=== PATIENT | female | born 1995 | race Caucasian/White ===

== ENCOUNTER 2016-08-13 19:59 | Emergency (ER) | payer SELFPAY ==
--- NOTE | 2016-08-13 21:04 | ED CLINICAL REPORT ---
Clinical Report - Physicians/Mid Levels [facility] [address] [place] [address] 08/13/2016 20:03 Patient: ILYA GONZALEZ Time Seen: 20:45 Kam 11 2016. Arrived- By private vehicle. Historian- patient. HISTORY OF PRESENT ILLNESS Chief Complaint: Injury to the right hand. The injury happened just prior to arrival. The patient sustained a laceration. Patient is experiencing mild pain. Patient denies injury to the head or neck. ( Possible fb from a wood stick/ splinter, removed part of it, unsure if part of it remains). REVIEW OF SYSTEMS No tingling, numbness or skin laceration. All systems otherwise negative, except as recorded above. PAST HISTORY The patient's dominant hand is the right. She has not had a prior injury to the same area. Tetanus immunization status is up-to-date. SOCIAL HISTORY Never smoker. Alcohol use. ADDITIONAL NOTES The nursing notes have been reviewed. PHYSICAL EXAM Vital Signs: 08/13/2016 20:12 BP: 121/83. HR: 82. RR: 15. O2 saturation: 98%. Temp: 98.6 F. Pain level now: 7/10. Appearance: Alert. No acute distress. Head: Head atraumatic. CVS: Normal heart rate and rhythm. Heart sounds normal. Respiratory: No respiratory distress. Breath sounds normal. Extremities: Right palm: (at proximal aspect of mcp 2nd digit flexor surface/ palm). (pain with flexion, able to flex completley. no palpable fb, no bleeding, mild swelling, small puncture hole noted on ramirez surface of ramirez mcp). No wrist injury. Neuro, Vascular and Tendons: Vascular status intact. Capillary refill not prolonged. Motor intact. Neuro: Oriented X 3. PROGRESS AND PROCEDURES Course of Care: after let applied wound irrigate. no palpable foreign object. Patient with full range of motion, no osseous tenderness, suspicion for an osseous fracture with a wood splinter is low, an x-ray would be amenable benefit, aS Wood is not radialopaque. Patient is stable, splint applied for comfort, irrigated, will start on Keflex. History of MRSA. 08/13/2016 21:21 BP: 116/85. HR: 63. RR: 14. O2 saturation: 100%. Pain level now: 4/10. Patient is stable. Physical exam findings are improved. Symptoms better. Patient/family counseled. Disposition: Discharged. Condition: good. CLINICAL IMPRESSION Retained soft tissue foreign body to the right hand. Puncture wound present (Possible wood retained). INSTRUCTIONS Elevate affected areas above chest level. Protect wound and keep wound area clean. Apply bacitracin twice daily. (follow up with your dr or ortho or [facility] Address: [address] [place] [address] ). Prescription Medications: Cephalexin 500 mg: take 1 capsule orally every 8 hours for 10 days. No refill. Ibuprofen 800 mg tablets: take 1 tablet orally every 8 hours for 5 days, as needed for pain. Dispense fifteen (15). No refill. OTC Medications: Tylenol ER 650 mg (available over the counter): take 1 orally every 6 hours for 5 days, as needed for pain. Dispense fifteen (15). No refill. Substitution is permissible. [facility] with: [facility], , [address] [place] [address] Follow up. Call for the next available appointment. (Electronically signed by Tamy Murdock P.A.-C 08/13/2016 21:27)
--- NOTE | 2016-08-13 21:04 | ED CLINICAL REPORT ---
Clinical Report - Physicians/Mid Levels [facility] [address] [place] [address] 08/13/2016 20:03 Patient: ILYA GONZALEZ Time Seen: 20:45 Kam 11 2016. Arrived- By private vehicle. Historian- patient. HISTORY OF PRESENT ILLNESS Chief Complaint: Injury to the right hand. The injury happened just prior to arrival. The patient sustained a laceration. Patient is experiencing mild pain. Patient denies injury to the head or neck. ( Possible fb from a wood stick/ splinter, removed part of it, unsure if part of it remains). REVIEW OF SYSTEMS No tingling, numbness or skin laceration. All systems otherwise negative, except as recorded above. PAST HISTORY The patient's dominant hand is the right. She has not had a prior injury to the same area. Tetanus immunization status is up-to-date. SOCIAL HISTORY Never smoker. Alcohol use. ADDITIONAL NOTES The nursing notes have been reviewed. PHYSICAL EXAM Vital Signs: 08/13/2016 20:12 BP: 121/83. HR: 82. RR: 15. O2 saturation: 98%. Temp: 98.6 F. Pain level now: 7/10. Appearance: Alert. No acute distress. Head: Head atraumatic. CVS: Normal heart rate and rhythm. Heart sounds normal. Respiratory: No respiratory distress. Breath sounds normal. Extremities: Right palm: (at proximal aspect of mcp 2nd digit flexor surface/ palm). (pain with flexion, able to flex completley. no palpable fb, no bleeding, mild swelling, small puncture hole noted on ramirez surface of ramirez mcp). No wrist injury. Neuro, Vascular and Tendons: Vascular status intact. Capillary refill not prolonged. Motor intact. Neuro: Oriented X 3. PROGRESS AND PROCEDURES Course of Care: after let applied wound irrigate. no palpable foreign object. Patient with full range of motion, no osseous tenderness, suspicion for an osseous fracture with a wood splinter is low, an x-ray would be amenable benefit, aS Wood is not radialopaque. Patient is stable, splint applied for comfort, irrigated, will start on Keflex. History of MRSA. 08/13/2016 21:21 BP: 116/85. HR: 63. RR: 14. O2 saturation: 100%. Pain level now: 4/10. Patient is stable. Physical exam findings are improved. Symptoms better. Patient/family counseled. Disposition: Discharged. Condition: good. CLINICAL IMPRESSION Retained soft tissue foreign body to the right hand. Puncture wound present (Possible wood retained). INSTRUCTIONS Elevate affected areas above chest level. Protect wound and keep wound area clean. Apply bacitracin twice daily. (follow up with your dr or ortho or [facility] Address: [address] [place] [address] ). Prescription Medications: Cephalexin 500 mg: take 1 capsule orally every 8 hours for 10 days. No refill. Ibuprofen 800 mg tablets: take 1 tablet orally every 8 hours for 5 days, as needed for pain. Dispense fifteen (15). No refill. OTC Medications: Tylenol ER 650 mg (available over the counter): take 1 orally every 6 hours for 5 days, as needed for pain. Dispense fifteen (15). No refill. Substitution is permissible. Follow-up with: [facility], , [address] [place] [address] Follow up. Call for the next available appointment. (Electronically signed by Tamy Murdock P.A.-C 08/13/2016 21:27)
--- NOTE | 2016-08-13 21:04 | ED ORDER SUMMARY ---
..... Patient: ILYA GONZALEZ OrderSheet [facility] VisitID: [id number] [address] [place] [address] 21y, F Registration Date/Time: 08/13/2016 ORDER SHEET Weight: 61.2 kg Allergies: Latex GENERAL ORDERS: MEDICATION ORDERS: LET Topical 1 application (NOW) (20:08/13/2016 EKemeka P.A.-C) (20:54 RMdarnell R.N.) Keflex PO 500 mg (NOW) (20:28 08/13/2016 Theron P.A.-C) (Ack 20:54 RMlayoden R.N.) (21:11 Josue R.N.) IV FLUIDS: ORDER SHEET NOTES: [Electronically signed by Tamy MurdockATiffanie-Aristides (21:27 08/13/2016)] [Electronically signed by Arelis Feliz R.N. (03:30 08/14/2016)] [Electronically locked/signed by Arelis Feliz R.N. (03:30 08/14/2016)]
--- NOTE | 2016-08-13 21:04 | ED NURSING NOTES ---
Clinical Report - Nurses [facility] [address] [place] [address] 08/13/2016 20:03 Patient: ILYA GONZALEZ TRIAGE Triage time 20:12. Acuity: LEVEL 4. Chief Complaint: INJURY TO RIGHT HAND. 20:19 08/13/16. Alert. No acute distress. SEPSIS SCREEN: Sepsis Screen. Negative (no infection suspected/documented). SRIRAM COMA SCORE: Sriram Coma Scale: 15- eyes open spontaneously (4); best verbal response- oriented x 4 (5); best motor response- obeys commands (6). --20:19 Arelis Feliz R.N. 20:12 08/13/16. BP: 121/83. HR: 82. RR: 15. O2 saturation: 98%. Temp: 98.6 F. Pain level now: 09/11. --20:19 Arelis Feliz R.N. Weight: 61.2 kg. Height/Length: 63 inches. BMI: 23.9. --21:27 Arelis Feliz R.N. Medications None. --20:16 Arelis Feliz R.N. Allergies Latex. --21:59 Arelis Feliz R.N. The following entry was struck by Arelis Feliz R.N., 21:59 (08/13/16) Reason - wrong value. <<STRICKEN ENTRY-- None. --20:16 Arelis Feliz R.N. --END STRIKE>>. History Arrived by private vehicle. Historian: patient. Accompanied by friend. Primary physician ([facility]). This occurred just prior to arrival. Occurred (bo). She has foreign material (for certain) (wood). ( Patient states she was playing baseball with a wood stick. The stick slid and a splinter went into her hand. She reports concern that she wasn't able to get the whole splinter out.). 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 PAST MEDICAL HX: Tetanus status: up-to-date. Immunizations: up-to-date. Last normal menstrual period now. Denies current . SOCIAL HX: Never smoker. Occasional alcohol use. No drug use. FALL RISK ASSESSMENT: Fall risk assessment completed. No fall risk identified. NUTRITIONAL RISK ASSESSMENT: The nutritional risk assessment revealed no deficiencies. FUNCTIONAL ASSESSMENT: Functional assessment: no impairments noted. LEARNING NEEDS ASSESSMENT: The learning needs assessment revealed no barriers. SKIN INTEGRITY ASSESSMENT: Skin integrity risk assessment completed. No skin integrity risk identified. --20:19 Arelis Feliz R.N. PROBLEMS: no known problems. ADDITIONAL SURGERIES: no known surgeries. Interventions ID band on patient. To treatment room. --20:19 Arelis Feliz R.N. PHYSICAL ASSESSMENT 20:20 08/13/16. Ambulatory to room. GENERAL / NEURO / PSYCH: Oriented X 4. Alert. Appears in no acute distress. EXTREMITIES: Capillary refill is less than 2 seconds in the extremities. Extremity pulses are within normal limits. Extremities exhibit normal ROM. Right hand: suspected foreign body and single puncture wound localized to the palmar aspect of the hand. SKIN: Skin is warm and dry. --20:20 Arelis Feliz R.N. NURSING PROGRESS NOTES 20:20 08/13/16. Call light placed in reach. Bed placed in lowest position. Brakes of bed on. Patient ready for evaluation- chart flagged and notification provided. --20:20 Arelis Feliz R.N. 20:54 08/13/2016 LET Topical Topical Solution 1 application. Placed on a cotton ball and secured with tape. Allergies verified and confirmed 5 rights. --20:54 Arelis Feliz R.N. 21:11 08/13/2016 Keflex (Cephalexin) PO Capsules 500 mg given. Allergies verified and confirmed 5 rights. --21:11 Arelis Feliz R.N. <<STRICKEN ENTRY-- Wound cleansed with sterile water. Applied clean dressing consisting of 4x4 gauze, following the application of antibiotic ointment (bacitracin). Secured with tape. Splint applied by nurse (mireille bandage applied to stabilize hand). --21:31 Arelis Feliz R.N. --END STRIKE>> Correction --21:31 Arelis Feliz R.N. 21:20. Wound cleansed with sterile water. Applied clean dressing consisting of 4x4 gauze, following the application of antibiotic ointment (bacitracin). Secured with tape. Splint applied by nurse (mireille bandage applied to stabilize hand). --21:31 Arelis Feliz R.N. DISPOSITION / DISCHARGE 21:21 08/13/16. BP: 116/85 taken on the left arm, while sitting. HR: 63. RR: 14. O2 saturation: 100%. Temp: deferred. Pain level now: 06/12. --21:24 Arelis Feliz R.N. 21:27 08/13/16. No learning barriers present. Discharge instructions provided and reviewed with the patient. Reviewed medication(s). Treatments reviewed. Activity restrictions reviewed. Patient verbalized understanding. Written instructions provided in Faroese. The patient was discharged home and accompanied by diamond wheel edger. She left the Emergency Department ambulatory and via private vehicle. Tile Burner driving. --21:27 Arelis Feliz R.N. Locked/Released at 08/14/2016 3:30 by Arelis Feliz R.N.
--- NOTE | 2016-08-13 21:04 | ED ORDER SUMMARY ---
..... Patient: ILYA GONZALEZ OrderSheet [facility] VisitID: [id number] [address] [place] [address] 21y, F Registration Date/Time: 08/13/2016 ORDER SHEET Weight: 61.2 kg Allergies: Latex GENERAL ORDERS: MEDICATION ORDERS: LET Topical 1 application (NOW) (20:08/13/2016 EKemeka P.A.-C) (20:54 RMdarnell R.N.) Keflex PO 500 mg (NOW) (20:28 08/13/2016 Theron P.A.-C) (Ack 20:54 RMlayoden R.N.) (21:11 Josue R.N.) IV FLUIDS: ORDER SHEET NOTES: [Electronically signed by Tamy MurdockATiffanie-Aristides (21:27 08/13/2016)] [Electronically signed by Arelis Feliz R.N. (03:30 08/14/2016)] [Electronically locked/signed by Arelis Feliz R.N. (03:30 08/14/2016)]
--- NOTE | 2016-08-13 21:04 | ED NURSING NOTES ---
Clinical Report - Nurses [facility] [address] [place] [address] 08/13/2016 20:03 Patient: ILYA GONZALEZ TRIAGE Triage time 20:12. Acuity: LEVEL 4. Chief Complaint: INJURY TO RIGHT HAND. 20:19 08/13/16. Alert. No acute distress. SEPSIS SCREEN: Sepsis Screen. Negative (no infection suspected/documented). SRIRAM COMA SCORE: Sriram Coma Scale: 15- eyes open spontaneously (4); best verbal response- oriented x 4 (5); best motor response- obeys commands (6). --20:19 Arelis Feliz R.N. 20:12 08/13/16. BP: 121/83. HR: 82. RR: 15. O2 saturation: 98%. Temp: 98.6 F. Pain level now: 09/11. --20:19 Arelis Feliz R.N. Weight: 61.2 kg. Height/Length: 63 inches. BMI: 23.9. --21:27 Arelis Feliz R.N. Medications None. --20:16 Arelis Feliz R.N. Allergies Latex. --21:59 Arelis Feliz R.N. The following entry was struck by Arelis Feliz R.N., 21:59 (08/13/16) Reason - wrong value. <<STRICKEN ENTRY-- None. --20:16 Arelis Feliz R.N. --END STRIKE>>. History Arrived by private vehicle. Historian: patient. Accompanied by friend. Primary physician ([facility]). This occurred just prior to arrival. Occurred (bo). She has foreign material (for certain) (wood). ( Patient states she was playing baseball with a wood stick. The stick slid and a splinter went into her hand. She reports concern that she wasn't able to get the whole splinter out.). 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 PAST MEDICAL HX: Tetanus status: up-to-date. Immunizations: up-to-date. Last normal menstrual period now. Denies current . SOCIAL HX: Never smoker. Occasional alcohol use. No drug use. FALL RISK ASSESSMENT: Fall risk assessment completed. No fall risk identified. NUTRITIONAL RISK ASSESSMENT: The nutritional risk assessment revealed no deficiencies. FUNCTIONAL ASSESSMENT: Functional assessment: no impairments noted. LEARNING NEEDS ASSESSMENT: The learning needs assessment revealed no barriers. SKIN INTEGRITY ASSESSMENT: Skin integrity risk assessment completed. No skin integrity risk identified. --20:19 Arelis Feliz R.N. PROBLEMS: no known problems. ADDITIONAL SURGERIES: no known surgeries. Interventions ID band on patient. To treatment room. --20:19 Arelis Feliz R.N. PHYSICAL ASSESSMENT 20:20 08/13/16. Ambulatory to room. GENERAL / NEURO / PSYCH: Oriented X 4. Alert. Appears in no acute distress. EXTREMITIES: Capillary refill is less than 2 seconds in the extremities. Extremity pulses are within normal limits. Extremities exhibit normal ROM. Right hand: suspected foreign body and single puncture wound localized to the palmar aspect of the hand. SKIN: Skin is warm and dry. --20:20 Arelis Feliz R.N. NURSING PROGRESS NOTES 20:20 08/13/16. Call light placed in reach. Bed placed in lowest position. Brakes of bed on. Patient ready for evaluation- chart flagged and notification provided. --20:20 Arelis Feliz R.N. 20:54 08/13/2016 LET Topical Topical Solution 1 application. Placed on a cotton ball and secured with tape. Allergies verified and confirmed 5 rights. --20:54 Arelis Feliz R.N. 21:11 08/13/2016 Keflex (Cephalexin) PO Capsules 500 mg given. Allergies verified and confirmed 5 rights. --21:11 Arelis Feliz R.N. <<STRICKEN ENTRY-- Wound cleansed with sterile water. Applied clean dressing consisting of 4x4 gauze, following the application of antibiotic ointment (bacitracin). Secured with tape. Splint applied by nurse (mireille bandage applied to stabilize hand). --21:31 Arelis Feliz R.N. --END STRIKE>> Correction --21:31 Arelis Feliz R.N. 21:20. Wound cleansed with sterile water. Applied clean dressing consisting of 4x4 gauze, following the application of antibiotic ointment (bacitracin). Secured with tape. Splint applied by nurse (mireille bandage applied to stabilize hand). --21:31 Arelis Feliz R.N. DISPOSITION / DISCHARGE 21:21 08/13/16. BP: 116/85 taken on the left arm, while sitting. HR: 63. RR: 14. O2 saturation: 100%. Temp: deferred. Pain level now: 06/12. --21:24 Arelis Feliz R.N. 21:27 08/13/16. No learning barriers present. Discharge instructions provided and reviewed with the patient. Reviewed medication(s). Treatments reviewed. Activity restrictions reviewed. Patient verbalized understanding. Written instructions provided in Icelandic. The patient was discharged home and accompanied by metal hanger. She left the Emergency Department ambulatory and via private vehicle. Pipe Fitter Supervisor Maintenance driving. --21:27 Arelis Feliz R.N. Locked/Released at 08/14/2016 3:30 by Arelis Feliz R.N.
--- NOTE | 2016-08-14 03:31 | ED DISCHARGE INSTRUCTIONS ---
Patient: ILYA GONZALEZ General Instructions [facility] VisitID: [id number] [place], [place] [id number] 21y, F Registration Date/Time: 08/13/2016 Retained soft tissue foreign body to the right hand. Puncture wound present (Possible wood retained). INSTRUCTIONS Elevate affected areas above chest level. Protect wound and keep wound area clean. Apply bacitracin twice daily. (follow up with your dr or ortho or [facility] Address: [address] [place] [address] ). Prescription Medications: Cephalexin 500 mg: take 1 capsule orally every 8 hours for 10 days. No refill. Ibuprofen 800 mg tablets: take 1 tablet orally every 8 hours for 5 days, as needed for pain. Dispense fifteen (15). No refill. OTC Medications: Tylenol ER 650 mg (available over the counter): take 1 orally every 6 hours for 5 days, as needed for pain. Dispense fifteen (15). No refill. Substitution is permissible. [facility], , [address], [place] [address] Follow up. Call for the next available appointment. ADDITIONAL INFORMATION Foreign ObjectUnder The Skin, Not Removed You may have a particle under your skin whichcould notbe found. Very small particles that remain under the skin usually cause no problem and need no further treatment. Sometimes they work their way to the surface on their own. If you see this happening, you can remove any particles with a tweezers. Home care The following guidelines will help you care for your wound at home: Keep the wound clean and dry. If a bandage was applied and it becomes wet or dirty, replace it. Otherwise, leave it in place for the first 24 hours, then change it once a day or as directed. If sutures were used, clean the wound daily: After removing the bandage, wash the area with soap and water. After cleaning, apply a thin layer of antibiotic ointment. This will keep the wound clean and make it easier to remove the stitches. Reapply the bandage. You may shower as usual after the first 24 hours, but do not soak the area in water (no baths or swimming) until the sutures are removed. If a surgical tape closure was used, keep the area clean and dry. If it becomes wet, blot it dry with a towel. You may use acetaminophen or ibuprofen to control pain, unless another pain medicine was prescribed.If you have chronic liver or kidney disease or ever had a stomach ulcer or GI bleeding, talk with your doctor before using these medicines. Follow-up care Follow up with your health care provider as directed. Most skin wounds heal within ten days. However, there is an increased risk of infection if there is any particle remaining under the skin. Therefore, check the wound daily for the signs listed below. Stitches should be removed within 714 days. If surgical tape closures were used, remove them after seven days, unless told otherwise. Note:Any X-rays will be reviewed by a radiologist. You will be notified if there are any new findings that may affect your care. When to seek medical care Get prompt medical attention if any of the following occur: Increasing pain in the wound Redness, swelling or pus coming from the wound Fever of 100.4F (38C) or higher, or as directed by your health care provider Cephalexin Monohydrate Oral tablet What is this medicine? CEPHALEXIN (sef a GRAZYNA in) is a cephalosporin antibiotic. It is used to treat certain kinds of bacterial infections It will not work for colds, flu, or other viral infections. How should I use this medicine? Take this medicine by mouth with a full glass of water. Follow the directions on the prescription label. This medicine can be taken with or without food. Take your medicine at regular intervals. Do not take your medicine more often than directed. Take all of your medicine as directed even if you think you are better. Do not skip doses or stop your medicine early. Talk to your parish nurse regarding the use of this medicine in children. While this drug may be prescribed for selected conditions, precautions do apply. What side effects may I notice from receiving this medicine? Side effects that you should report to your doctor or health inspector health care facilities as soon as possible: allergic reactions like skin rash, itching or hives, swelling of the face, lips, or tongue breathing problems pain or trouble passing urine redness, blistering, peeling or loosening of the skin, including inside the mouth severe or watery diarrhea unusually weak or tired yellowing of the eyes, skin Side effects that usually do not require medical attention (report to your doctor or health inspector health care facilities if they continue or are bothersome): gas or heartburn genital or anal irritation headache joint or muscle pain nausea, vomiting What may interact with this medicine? probenecid some other antibiotics What if I miss a dose? If you miss a dose, take it as soon as you can. If it is almost time for your next dose, take only that dose. Do not take double or extra doses. There should be at least 4 to 6 hours between doses. Where should I keep my medicine? Keep out of the reach of children. Store at room temperature between 59 and 86 degrees F (15 and 30 degrees C). Throw away any unused medicine after the expiration date. What should I tell my health care provider before I take this medicine? They need to know if you have any of these conditions: kidney disease stomach or intestine problems, especially colitis an unusual or allergic reaction to cephalexin, other cephalosporins, penicillins, other antibiotics, medicines, foods, dyes or preservatives or trying to get breast-feeding What should I watch for while using this medicine? Tell your doctor or health inspector health care facilities if your symptoms do not begin to improve in a few days. Do not treat diarrhea with over the counter products. Contact your doctor if you have diarrhea that lasts more than 2 days or if it is severe and watery. If you have diabetes, you may get a false-positive result for sugar in your urine. Check with your doctor or health inspector health care facilities. You have been given the following additional information: Foreign Body, Soft Tissue [Not Removed] Cephalexin Monohydrate Oral tablet (Electronically signed by Tamy Murdock P.A.-C 08/13/2016 21:27)
--- NOTE | 2016-08-14 03:31 | ED MED RECONCILIATION SUMMARY ---
Patient: ILYA GONZALEZ Medication Reconciliation Report [facility] VisitID: [id number] [address] [place] [address] 21y, F Registration Date/Time: 08/13/2016 Weight: 61.2 kg Height/Length: 63 in. BMI: 23.9 ALLERGIES: Latex The patient's Home Medications are listed below: NONE. The source(s) of the original Home Medication information: Not obtained. The following Medications were given to the patient in the Emergency Department: LET [Topical] Topical 1 application, administered: 08/13/2016 8:54:00 PM Keflex [PO] PO 500 mg, administered: 08/13/2016 9:11:00 PM The following Medications were prescribed to the patient: Cephalexin 500 mg: take 1 capsule orally every 8 hours for 10 days. No refill. -- Tamy Murdock, P.A.-C Ibuprofen 800 mg tablets: take 1 tablet orally every 8 hours for 5 days, as needed for pain. Dispense fifteen (15). No refill. -- Tamy Murdock, P.A.-C Tylenol ER 650 mg (available over the counter): take 1 orally every 6 hours for 5 days, as needed for pain. Dispense fifteen (15). No refill. Substitution is permissible. -- Tamy Murdock, P.A.-C
--- NOTE | 2016-08-14 03:31 | ED MAR SUMMARY ---
..... Medication Administration Record [facility] [address] [place] [address] Patient: ILYA GONZALZE Visit ID: [id number] 21y, F Weight: 61.2 kg Height/Length: 63 in BMI: 23.9 ALLERGIES: Latex Given 20:54 08/13/2016 Arelis Feliz RAlmaz Medication Administered: LET [TOPICAL], Dose: 1 application Topical Solution Topical. Medication Ordered: LET Topical 1 application (NOW). Given 21:11 08/13/2016 Arelis Feliz, RTiffanieN. Medication Administered: KEFLEX [PO] (CEPHALEXIN), Dose: 500 mg Capsules PO. Medication Ordered: Keflex PO 500 mg (NOW).
--- NOTE | 2016-08-14 03:31 | ED DISCHARGE INSTRUCTIONS ---
Patient: ILYA GONZALEZ General Instructions [facility] VisitID: [id number] [address] [place], [place] [id number] 21y, F Registration Date/Time: 08/13/2016 Retained soft tissue foreign body to the right hand. Puncture wound present (Possible wood retained). INSTRUCTIONS Elevate affected areas above chest level. Protect wound and keep wound area clean. Apply bacitracin twice daily. (follow up with your dr or ortho or psychiatric Address: [address] [place] [address] ). Prescription Medications: Cephalexin 500 mg: take 1 capsule orally every 8 hours for 10 days. No refill. Ibuprofen 800 mg tablets: take 1 tablet orally every 8 hours for 5 days, as needed for pain. Dispense fifteen (15). No refill. OTC Medications: Tylenol ER 650 mg (available over the counter): take 1 orally every 6 hours for 5 days, as needed for pain. Dispense fifteen (15). No refill. Substitution is permissible. [facility]: [facility] , [address], [place] [address] Follow up. Call for the next available appointment. ADDITIONAL INFORMATION Foreign ObjectUnder The Skin, Not Removed You may have a particle under your skin whichcould notbe found. Very small particles that remain under the skin usually cause no problem and need no further treatment. Sometimes they work their way to the surface on their own. If you see this happening, you can remove any particles with a tweezers. Home care The following guidelines will help you care for your wound at home: Keep the wound clean and dry. If a bandage was applied and it becomes wet or dirty, replace it. Otherwise, leave it in place for the first 24 hours, then change it once a day or as directed. If sutures were used, clean the wound daily: After removing the bandage, wash the area with soap and water. After cleaning, apply a thin layer of antibiotic ointment. This will keep the wound clean and make it easier to remove the stitches. Reapply the bandage. You may shower as usual after the first 24 hours, but do not soak the area in water (no baths or swimming) until the sutures are removed. If a surgical tape closure was used, keep the area clean and dry. If it becomes wet, blot it dry with a towel. You may use acetaminophen or ibuprofen to control pain, unless another pain medicine was prescribed.If you have chronic liver or kidney disease or ever had a stomach ulcer or GI bleeding, talk with your doctor before using these medicines. Follow-up care Follow up with your health care provider as directed. Most skin wounds heal within ten days. However, there is an increased risk of infection if there is any particle remaining under the skin. Therefore, check the wound daily for the signs listed below. Stitches should be removed within 714 days. If surgical tape closures were used, remove them after seven days, unless told otherwise. Note:Any X-rays will be reviewed by a radiologist. You will be notified if there are any new findings that may affect your care. When to seek medical care Get prompt medical attention if any of the following occur: Increasing pain in the wound Redness, swelling or pus coming from the wound Fever of 100.4F (38C) or higher, or as directed by your health care provider Cephalexin Monohydrate Oral tablet What is this medicine? CEPHALEXIN (sef a GRAZYNA in) is a cephalosporin antibiotic. It is used to treat certain kinds of bacterial infections It will not work for colds, flu, or other viral infections. How should I use this medicine? Take this medicine by mouth with a full glass of water. Follow the directions on the prescription label. This medicine can be taken with or without food. Take your medicine at regular intervals. Do not take your medicine more often than directed. Take all of your medicine as directed even if you think you are better. Do not skip doses or stop your medicine early. Talk to your office executive regarding the use of this medicine in children. While this drug may be prescribed for selected conditions, precautions do apply. What side effects may I notice from receiving this medicine? Side effects that you should report to your doctor or health specialist wound care as soon as possible: allergic reactions like skin rash, itching or hives, swelling of the face, lips, or tongue breathing problems pain or trouble passing urine redness, blistering, peeling or loosening of the skin, including inside the mouth severe or watery diarrhea unusually weak or tired yellowing of the eyes, skin Side effects that usually do not require medical attention (report to your doctor or health specialist wound care if they continue or are bothersome): gas or heartburn genital or anal irritation headache joint or muscle pain nausea, vomiting What may interact with this medicine? probenecid some other antibiotics What if I miss a dose? If you miss a dose, take it as soon as you can. If it is almost time for your next dose, take only that dose. Do not take double or extra doses. There should be at least 4 to 6 hours between doses. Where should I keep my medicine? Keep out of the reach of children. Store at room temperature between 59 and 86 degrees F (15 and 30 degrees C). Throw away any unused medicine after the expiration date. What should I tell my health care provider before I take this medicine? They need to know if you have any of these conditions: kidney disease stomach or intestine problems, especially colitis an unusual or allergic reaction to cephalexin, other cephalosporins, penicillins, other antibiotics, medicines, foods, dyes or preservatives or trying to get breast-feeding What should I watch for while using this medicine? Tell your doctor or health specialist wound care if your symptoms do not begin to improve in a few days. Do not treat diarrhea with over the counter products. Contact your doctor if you have diarrhea that lasts more than 2 days or if it is severe and watery. If you have diabetes, you may get a false-positive result for sugar in your urine. Check with your doctor or health specialist wound care. You have been given the following additional information: Foreign Body, Soft Tissue [Not Removed] Cephalexin Monohydrate Oral tablet (Electronically signed by Tamy Murdock P.A.-C 08/13/2016 21:27)
--- NOTE | 2016-08-14 03:31 | ED MED RECONCILIATION SUMMARY ---
Patient: ILYA GONZALEZ Medication Reconciliation Report VisitID: [id number] [address] [place] [address] 21y, F Registration Date/Time: 08/13/2016 Weight: 61.2 kg Height/Length: 63 in. BMI: 23.9 ALLERGIES: Latex The patient's Home Medications are listed below: NONE. The source(s) of the original Home Medication information: Not obtained. The following Medications were given to the patient in the Emergency Department: LET [Topical] Topical 1 application, administered: 08/13/2016 8:54:00 PM Keflex [PO] PO 500 mg, administered: 08/13/2016 9:11:00 PM The following Medications were prescribed to the patient: Cephalexin 500 mg: take 1 capsule orally every 8 hours for 10 days. No refill. -- Tamy Murdock, P.A.-C Ibuprofen 800 mg tablets: take 1 tablet orally every 8 hours for 5 days, as needed for pain. Dispense fifteen (15). No refill. -- Tamy Murdock, P.A.-C Tylenol ER 650 mg (available over the counter): take 1 orally every 6 hours for 5 days, as needed for pain. Dispense fifteen (15). No refill. Substitution is permissible. -- Tamy Murdock, P.A.-C
--- NOTE | 2016-08-14 03:31 | ED MAR SUMMARY ---
..... Medication Administration Record [facility] [address] [place] [address] Patient: ILYA GONAZLEZ Visit ID: [id number] 21y, F Weight: 61.2 kg Height/Length: 63 in BMI: 23.9 ALLERGIES: Latex Given 20:54 08/13/2016 Arelis Feliz RAlmaz Medication Administered: LET [TOPICAL], Dose: 1 application Topical Solution Topical. Medication Ordered: LET Topical 1 application (NOW). Given 21:11 08/13/2016 Arelis Feliz, RTiffanieN. Medication Administered: KEFLEX [PO] (CEPHALEXIN), Dose: 500 mg Capsules PO. Medication Ordered: Keflex PO 500 mg (NOW).
== END 2016-08-13 21:27 | disposition home or self-care (01) ==
LOC: ED SRH 19:59
DX: S61.441A Puncture wound with foreign body of right hand, initial encounter (principal); W45.8XXA Other foreign body or object entering through skin, initial encounter; Y93.64 Activity, baseball; Y92.828 Other wilderness area as the place of occurrence of the external cause; Y99.8 Other external cause status; Z91.040 Latex allergy status